=== PATIENT | male | born 1995 | race Caucasian/White ===

== ENCOUNTER 2017-07-27 20:35 | Emergency (ER) | payer OTHER ==
[~2017-07-27] VITALS: Ht 182.9 cm; Wt 86.8 kg
[2017-07-27 20:40] VITALS: TEMP 37.2; Ht 182.9 cm; Wt 86.8 kg
[2017-07-27] MEDS ORDERED: ACETAMINOPHEN 500 MG TAB PO STA (21:10)
[2017-07-27] MEDS ORDERED: IBUPROFEN 600 MG TAB PO STA (21:10)
[2017-07-27] MEDS ORDERED: BENZONATATE 100MG CAP PO ONE (21:15)
[2017-07-27] MEDS ORDERED: AMOXICILLIN/CLAVULANATE TAB 875 MG TAB PO ONE (21:15)
--- NOTE | 2017-07-27 21:29 | DIAGNOSTIC IMAGING REPORT ---
CHEST ONE VIEW PORTABLE CLINICAL HISTORY: cough dyspnea COMPARISON STUDY: No previous studies for comparison. FINDINGS: Subtle increase in density characteristics of left lung base. Lungs otherwise appear clear. Diaphragms smooth. IMPRESSION: Minimal poorly defined patchy parenchymal infiltrate left base. The above report was generated using voice recognition software. It may contain grammatical, syntax or spelling errors. Electronically signed by: Tristan Sales M.D. 07/27/2017 9:28 PM Dictated Date/Time: 07/27/2017 9:27 PM
[2017-07-27 22:01] VITALS: BP 124/72
[2017-07-27 22:05] VITALS: PULSE 75; O2SAT 97
[2017-07-27] MEDS ORDERED: AZITHROMYCIN 250 MG TAB PO ONE (22:15)
[2017-07-27] MEDS ORDERED: AMOX875T PO (22:16)
[2017-07-27] MEDS ORDERED: AZIT250T PO (22:16)
--- NOTE | 2017-07-27 22:17 | EMERGENCY ROOM VISIT NOTE ---
History Report prepared by Germaine: Tiarra Mariano Under the Supervision of: Dr. Garret Ortega M.D. First contact with patient: 20:52 Chief Complaint: ILLNESS Stated Complaint: SEVERE COUGH,CONGESTION,NECK PAIN,RUNNY NOSE,FEVER History of Present Illness The patient is a 21 year old white male with no past medical history who presents to the ED with a cc of a worsening illness beginning three days ago. He notes he has been taking NyQuil with no relief. Positive dry cough, sore throat, and losing his voice. He notes that he lost his voice yesterday. Negative being around someone sick, nausea, vomiting, abnormal eating/drinking, and swelling in legs. He notes he just drove back here for school from [place], [place]. Source of History: patient Onset: 3 days ago Position: other (global) Quality: other (global) Timing: worsening Associated Symptoms: + sorethroat, + cough, No nausea, No vomiting Note: The patient complains of losing his voice. The patient denies being around anyone who is sick, abnormal eating/drinking behavior, and swelling in his legs. Review of Systems See HPI for pertinent positives and negatives. A total of ten systems were reviewed and were otherwise negative. Past Medical & Surgical Medical Problems: (1) No Known Active Medical Problems Family History No pertinent family history Social History Smoking Status: Never Smoker Smokeless Tobacco Use: No Alcohol Use: none Drug Use: none Marital Status: single Housing Status: lives with roommate Occupation Status: [employer] [address] student Current/Historical Medications Scheduled Amoxicillin & Pot Clavulanate (Augmentin 875-125 mg), 875 MG PO BID Azithromycin (Zithromax), 250 MG PO DAILY Allergies Coded Allergies: No Known Allergies (Unverified , 07/27/17) Physical Exam Vital Signs Date Time Temp Pulse Resp B/P (MAP) Pulse Ox O2 Delivery O2 Flow Rate FiO2 07/27/17 22:05 75 17 97 07/27/17 22:01 124/72 07/27/17 21:50 67 98 07/27/17 21:35 72 100 07/27/17 21:31 118/73 07/27/17 21:20 68 99 07/27/17 21:05 70 20 98 Room Air 07/27/17 21:01 133/74 07/27/17 20:53 128/65 07/27/17 20:40 37.2 77 18 136/77 96 Room Air Physical Exam GENERAL: Awake, alert, well-appearing, NAD HENT: Normocephalic, atraumatic. Tonsillitis.Some erythema. Some exudate. EYES: Normal conjunctiva. Sclera non-icteric. NECK: Supple. No nuchal rigidity. FROM. RESPIRATORY: CTAB, no rhonchi, wheezing, crackles. No stridor. CARDIAC: RRR, no MRG ABDOMEN: Soft, NTND, BS+ MSK: No chest wall TTP, no LE edema NEURO: GCS 15, CN 2-12 intact, moves all 4s on command SKIN: No rash or jaundice noted. Medical Decision & Procedures ER Provider Diagnostic Interpretation: Radiology results as stated below per my review and radiologist interpretation: CHEST ONE VIEW PORTABLE CLINICAL HISTORY: cough dyspnea COMPARISON STUDY: No previous studies for comparison. FINDINGS: Subtle increase in density characteristics of left lung base. Lungs otherwise appear clear. Diaphragms smooth. IMPRESSION: Minimal poorly defined patchy parenchymal infiltrate left base. The above report was generated using voice recognition software. It may contain grammatical, syntax or spelling errors. Electronically signed by: Tristan Sales M.D. 07/27/2017 9:28 PM Dictated Date/Time: 07/27/2017 9:27 PM Medications Administered Medications (Trade) Dose Ordered Sig/Earlene Route Start Time Stop Time Status Last Admin Dose Admin Amoxicillin/ Clavulanate Potassium (Augmentin Tab) 875 mg NOW ONCE PO 07/27/17 21:15 07/27/17 21:16 DC 07/27/17 21:28 875 MG Prednisone (PredniSONE TAB) 50 mg ONE STAT PO 07/27/17 21:10 07/27/17 21:13 DC 07/27/17 21:27 50 MG Ibuprofen (Motrin Tab) 600 mg NOW STAT PO 07/27/17 21:10 07/27/17 21:13 DC 07/27/17 21:27 600 MG Acetaminophen (Tylenol Tab) 1,000 mg NOW STAT PO 07/27/17 21:10 07/27/17 21:13 DC 07/27/17 21:27 1,000 MG Benzonatate (Tessalon Perles Cap) 100 mg NOW ONCE PO 07/27/17 21:15 07/27/17 21:16 DC 07/27/17 21:28 100 MG Azithromycin (Zithromax Tab) 500 mg NOW ONCE PO 07/27/17 22:15 07/27/17 22:16 DC 07/27/17 22:15 500 MG ED Course 2100: The patient was evaluated in room C4. A complete history and physical exam was performed. 2215: I reevaluated the patient. Discussed results and discharge instructions: He verbalized understanding and agreement. The patient is ready for discharge. Medical Decision The patient is a 21 year old white male with no past medical history who presents to the ED with a cc of a worsening illness beginning three days ago. Etiologies such as viral syndrome, tonsillitis, streptococcal pharyngitis, mononucleosis, peritonsillar abscess, retropharyngeal abscess, otitis, pneumonia , influenza, as well as others were entertained. Patient was seen and evaluated the bedside. Patient has been having some worsening sore throat as well as some cough that he states nonproductive. Patient is very well-appearing is afebrile and his vital signs are stable. Patient does have a fair amount of tonsillar exudate sore throat. is non- stridulous. Patient is fairly clear chest sounds. I told the patient that we will treat him empirically for strep pharyngitis. Patient was given a dose of Augmentin which would also help cover any pulmonary infections. Patient was seen have a questionable left lower lobe infiltrate. Patient was also covered for atypicals with Zithromax. Patient was given instructions on at-home care in addition to his antibiotic use. Patient was deemed suitable for outpatient follow-up and treatment. I did not believe that the patient requires any lab work at this time. Patient was agreeable to this plan of care. Patient was given strict follow-up, discharge, and return precautions. All questions were answered. Patient was deemed suitable for outpatient follow-up at this time. Patient agreed with the plan of care and was safely discharged home. Medication Reconcilliation Current Medication List: was personally reviewed by me Blood Pressure Screening Patient's blood pressure: Normal blood pressure Blood pressure disposition: Did not require urgent referral Impression Primary Impression: Strep pharyngitis Additional Impression: Pneumonia Scribe Attestation The scribe's documentation has been prepared under my direction and personally reviewed by me in its entirety. I confirm that the note above accurately reflects all work, treatment, procedures, and medical decision making performed by me. Departure Information Dispostion Home / Self-Care Prescriptions Azithromycin (Zithromax) 250 Mg Tab 250 MG PO DAILY, #4 TAB Prov: Garret Ortega M.D. 07/27/17 Amoxicillin & Pot Clavulanate (Augmentin 875-125 mg) 1 Tab Tab 875 MG PO BID for 7 Days, #14 TAB Prov: Garret Ortega M.D. 07/27/17 Forms HOME CARE DOCUMENTATION FORM, IMPORTANT VISIT INFORMATION, WORK / SCHOOL INSTRUCTIONS Patient Instructions ED Strep Pharyngitis Poss, [facility], Pneumonia Additional Instructions Please return to the emergency department if you have worsening or recurrent symptoms not amenable to at-home treatment. Please call for a follow-up appointment with her primary care physician. Please take your medications as prescribed. If you have other concerns and/or complaints please feel free to also call your primary care physician's office or return the ED for further evaluation, management, and treatment. Continue to practice good oral hygiene make sure you're brush and floss her teeth. Avoid alcohol and tobacco. Continue liberal fluid hydration. He may try [id number] type medications for symptomatic treatment at her local pharmacy. You may take 600 mg Ibuprofen every 6 hours as needed for pain with food for no more than 2 consecutive days. You may take tylenol 1000 mg every 6 hours as needed for pain. You may take motrin and tylenol separately or at the same time. Take your medications as prescribed. If taking an antibiotic consider taking a probiotic and/or eating yogurt, but at the least, please take with food as it can cause upset stomach. You have been examined and treated today on an emergency basis only. This is not a substitute for, or an effort to provide, complete comprehensive medical care. It is impossible to recognize and treat all injuries or illnesses in a single emergency department visit. It is therefore important that you follow up closely with [facility], your PCP, and/or your specialist(s). Call as soon as possible for an appointment. Thank you for your time and consideration. I look forward to speaking with you again soon. Please don't hesitate to call us if you have any questions. Problem Qualifiers Additional Impression: Pneumonia Pneumonia type: due to unspecified organism Laterality: left Lung location : lower lobe of lung Qualified Codes: J18.1 - Lobar pneumonia, unspecified organism
== END 2017-07-27 22:23 | disposition home or self-care (01) ==
LOC: C.EDB 20:37 → C.EDC 22:23
DX: J02.0 Streptococcal pharyngitis (principal); J18.9 Pneumonia, unspecified organism